=== PATIENT | female | born 1940 | race Caucasian/White ===

== ENCOUNTER 2017-03-22 14:42 | Emergency (ER) | payer MEDICARE, BC ==
[2017-03-22 15:02] VITALS: BP 145/87; PULSE 91; RESP 18; TEMP 97.6
[2017-03-22] MEDS ORDERED: DIPH,PERTUS(ACELL)TETVAC-LF 0.5 ML VIAL IM ONE (15:25)
--- NOTE | 2017-03-22 15:42 | ED ---
Wound/Laceration HPI - General Chief Complaint: Wound/Laceration Stated Complaint: Finger/Lac Time Seen by Provider: 03/22/17 15:13 Source: patient, RN notes reviewed Mode of arrival: ambulatory Limitations: no limitations - History of Present Illness Initial Comments: 76-year-old female presents emergency Department chief complaint of finger laceration. Patient states she was cutting some squash and states it's a benign cut her left hand fifth digit. She is unsure when her last tetanus was. Patient is full range of motion there is mild active bleeding no paresthesias. - Related Data Allergies Allergy/AdvReac Type Severity Reaction Status Date / Time No Known Allergies Allergy Verified 03/22/17 15:02 Review of Systems ROS Statement: Those systems with pertinent positive or pertinent negative responses have been documented in the HPI. ROS Other: All systems not noted in ROS Statement are negative. Past Medical History Past Medical History: Hypertension Additional Past Medical History / Comment(s): ARTHRITIS History of Any Multi-Drug Resistant Organisms: None Reported Additional Past Surgical History / Comment(s): D AND C Past Psychological History: No Psychological Hx Reported Smoking Status: Former smoker Past Alcohol Use History: None Reported Past Drug Use History: None Reported General Exam General appearance: alert, in no apparent distress Respiratory exam: Present: normal lung sounds bilaterally. Absent: respiratory distress, wheezes, rales, rhonchi, stridor Cardiovascular Exam: Present: regular rate, normal rhythm, normal heart sounds. Absent: systolic murmur, diastolic murmur, rubs, gallop, clicks Extremities exam: Present: other (Left hand fifth digit volar surface there is a 2 cm laceration over the interphalangeal joint patient has full range of motion neurovascular intact) Course Vital Signs 03/22/17 14:58 Temperature 97.6 F Pulse Rate 91 Respiratory 18 Rate Blood Pressure 145/87 O2 Sat by Pulse 99 Oximetry Procedures - Laceration Laceration #1 Consent Obtained: verbal consent Indication: laceration Site: hand (Left hand fifth digit) Size (cm): 2 Description: linear Depth: simple, single layer Anesthetic Used: lidocaine 1%, without epi Anesthesia Technique: local infiltration Amount (mls): 2 Pre-repair: wound explored, irrigated extensively, deep structures intact Type of Sutures: nylon Size of Sutures: 4-0 Number of Sutures: 4 Technique: simple, interrupted Patient Tolerated Procedure: well, no complications Medical Decision Making - Medical Decision Making 76-year-old female presented for finger laceration. Patient's tetanus was updated. Patient has a simple laceration was closed with sutures there is no tendon involvement. Return parameters were discussed wound care was discussed. Disposition Clinical Impression: Finger laceration Disposition: HOME SELF-CARE Condition: Stable Instructions: Care For Your Stitches (ED), Finger Laceration (ED) Additional Instructions: Have sutures removed in 10 days.Please return to the Emergency Department if symptoms worsen or any other concerns. Referrals: Mihir Gerber MD [Primary Care Provider] - 1-2 days Time of Disposition: 15:42
== END 2017-03-22 15:55 | disposition home or self-care (01) ==
LOC: EC 14:42
DX: S61.217A Laceration without foreign body of left little finger without damage to nail, initial encounter (principal); Z87.891 Personal history of nicotine dependence; Z23 Encounter for immunization; W26.0XXA Contact with knife, initial encounter; Y93.89 Activity, other specified
CPT/HCPCS: 12001; 90471; 90715; 99282

== ENCOUNTER 2020-12-24 11:42 | Day surgery (SDC) | payer BC, MEDICARE ==
[2020-12-23 10:46] VITALS: BMI 26.6
[~2020-12-24 11:42] MED LIST: LACTATED RINGERS 1,000 ML IV SCH; LIDOCAINE 1% (10MG/ML) FOR IV START INTRADERMA PRN; MOXIFLOXACIN HCL 0.5% DROPS 3 ML BTL OP PRN; TETRACAINE 0.5% OPHTH (PF) DROPS 4 ML BTL OP PRN; TIMOLOL 0.5% OPHTH DROPS 5 ML BTL OP PRN
[2020-12-24 13:03] VITALS: TEMP 97.5
[2020-12-24] MEDS: CYCLOPENTOLATE 1% OPHTH SOLN 2 ML BTL OP PRN ×3 (13:09→13:21)
[2020-12-24] MEDS: PHENYLEPHRINE 2.5% OPHTH DRP 2ML OP PRN ×3 (13:12→13:24)
[2020-12-24] MEDS ORDERED: ONDANSETRON 4 MG/2 ML VIAL ONE (14:26)
[2020-12-24] MEDS ORDERED: fentaNYL (PF) 50 MCG/ML 2 ML AMP ONE (14:26)
[2020-12-24] MEDS ORDERED: EPINEPHrine (PF) 0.3 ML in BALANCED SALT IRRIG SOLN COMB2 500 ML IRRIGATION ONE (14:29)
[2020-12-24] MEDS ORDERED: HYALURONATE SODIUM INTRAOCULAR 1 EACH SYRINGE (12MG/ML) INTRAOCULA ONE ×2 (14:30→14:42)
[2020-12-24] MEDS ORDERED: LIDOCAINE 1% (PF) 10MG/ML VIAL MISCELLANE ONE ×2 (14:30→14:43)
[2020-12-24] MEDS ORDERED: BALANCED SALT IRRIG SOLN COMB2 15 ML IRRIG.SOLN IRRIGATION ONE ×2 (14:30→14:42)
--- NOTE | 2020-12-24 14:52 | P.OP ---
Date of Procedure: 12/24/20 Preoperative Diagnosis: NS & PXS Postoperative Diagnosis: same Procedure(s) Performed: PIOL OS Implants: MX60 e 23.00 & CTR 13 mm Anesthesia: MAC Surgeon: Kaiser Joseph Pathology: none sent Condition: stable Disposition: same day Indications for Procedure: blurry vision Operative Findings: no complications
[2020-12-24 15:41] VITALS: RESP 14
[2020-12-24 15:42] VITALS: BP 151/80; PULSE 79
--- NOTE | 2020-12-25 10:15 | OP ---
OPERATIVE REPORT DATE OF SURGERY: December 24, 2020 PROCEDURES: Phacoemulsification of cataract and intraocular lens implant to the left eye. 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 POSTOPERATIVE DIAGNOSES: Nuclear sclerosis and pseudoexfoliation syndrome. SURGEON: Dr. Kaiser Joseph. ANESTHESIA: Topical. ESTIMATED BLOOD LOSS: None. SPECIMEN TAKEN: None. NARRATIVE: After obtaining the appropriate consent, the patient was brought to the operating room. There she was placed on a cardiac monitoring prepped and draped in the usual sterile manner. She was approached from her left temporal side and at the 5 o'clock position an MVR blade was used to create a paracentesis port through this opening 1% Xylocaine MPF 50:50 mix with balanced salt solution was injected into the anterior chamber. This was followed by stabilization of the anterior chamber with Amvisc. At the 3 o'clock position, a 2.5 mm keratome was used to create a self-sealing corneal flap incision. Through this opening, a cystotome was introduced to begin a continuous tear capsulorrhexis which was completed using the Utrata forceps. Hydrodissection and hydrodelineation of the lens were accomplished with balanced salt solution. Phacoemulsification of the lens utilizing phaco chop was accomplished in 18.45 seconds at 9% power. Additional Xylocaine MPF was instilled into the anterior chamber. This was followed by removal of the remaining cortex under irrigation and aspiration as well as careful polishing of the posterior capsule in capsule vacuum mode. Amvisc was then used to stabilize the capsular bag and a 13 mm capsular tension ring, model [id number] was placed into the equator of the bag without difficulty. This was followed by placement of the posterior chamber intraocular lens by [employer] model [id number] 23.0 diopters. Following positioning of the lens, the remaining viscoelastic was then removed from in and around the intraocular lens as well as the anterior chamber. The eye was brought to normal intraocular pressures through the paracentesis port and the wounds were confirmed watertight. She then received 2 drops of 0.5% timolol followed by 2 drops of 0.5% moxifloxacin, was then lightly patched and shielded in the usual manner. There were no complications from the procedure. She tolerated the procedure well and was returned to outpatient recovery in good condition. MMODL / IJN: [id number] /
== END 2020-12-24 15:38 | disposition home or self-care (01) ==
LOC: OR 11:42
PROVIDERS: ATTEND Ophthalmology
DX: H25.13 Age-related nuclear cataract, bilateral (principal); H25.89 Other age-related cataract; H26.8 Other specified cataract; H40.003 Preglaucoma, unspecified, bilateral; H35.372 Puckering of macula, left eye; H04.123 Dry eye syndrome of bilateral lacrimal glands; H16.103 Unspecified superficial keratitis, bilateral; H00.023 Hordeolum internum right eye, unspecified eyelid; H00.026 Hordeolum internum left eye, unspecified eyelid; H52.03 Hypermetropia, bilateral; H52.4 Presbyopia; F41.9 Anxiety disorder, unspecified; F32.9 Major depressive disorder, single episode, unspecified; B15.9 Hepatitis A without hepatic coma; Z86.72 Personal history of thrombophlebitis; Z83.518 Family history of other specified eye disorder; Z80.3 Family history of malignant neoplasm of breast; Z80.1 Family history of malignant neoplasm of trachea, bronchus and lung; Z83.3 Family history of diabetes mellitus; Z84.89 Family history of other specified conditions; Z79.82 Long term (current) use of aspirin; Z79.899 Other long term (current) drug therapy
CPT/HCPCS: 66984; J2405; J0171; J3010; J2001